=== PATIENT | female | born 1985 | race African-American/Black ===

== ENCOUNTER 2019-01-08 07:43 | Emergency (ER) | payer OTHER ==
[~2019-01-08] VITALS: Ht 177.8 cm; Wt 86.2 kg
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
[2019-01-08 07:46] VITALS: BP 128/82
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
--- NOTE | 2019-01-08 08:14 | NUR ---
ED Nurse Note: RADIOLOGY CALLED FOR XRAY.
--- NOTE | 2019-01-08 08:49 | NUR ---
ED Nurse Note: PT TO XRAY VIA WHEELCHAIR
--- NOTE | 2019-01-08 09:14 | NUR ---
ED Nurse Note: PT BACK FROM XRAY VIA WHEELCHAIR.
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
[2019-01-08] MEDS ORDERED: IBUPROFEN600 MG ORAL (09:28)
[2019-01-08] MEDS ORDERED: NORCO 5-325 TA1 EACH ORAL (09:28)
[2019-01-08 09:36] VITALS: BP 124/76
--- NOTE | 2019-01-08 09:37 | NUR ---
ED Nurse Note: PT SITTING PEACEFULLY IN BED IN NAD. AOX4. PRESCRIPTIONS AND DISCHARGE PAPERWORK EXPLAINED TO PT. PT VERBALIZES UNDERSTANDING AND ALL QUESTIONS ANSWERED. PRESCRIPTIONS AND DISCHARGE PAPERWORK GIVEN TO PT AND ID WRISTBAND REMOVED. PT WALKED OUT OF ER WITH STEADY GAIT AND ALL BELONGINGS.
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
== END 2019-01-08 09:37 | disposition home or self-care (01) ==
LOC: EDBD 07:43 → EMR 08:07
DX: S16.1XXA Strain of muscle, fascia and tendon at neck level, initial encounter (principal); S29.011A Strain of muscle and tendon of front wall of thorax, initial encounter; F43.10 Post-traumatic stress disorder, unspecified; Z91.040 Latex allergy status; V43.52XA Car driver injured in collision with other type car in traffic accident, initial encounter; Y92.410 Unspecified street and highway as the place of occurrence of the external cause
CPT/HCPCS: 71045; 72040; 99284